=== PATIENT | male | born 1965 | race Caucasian/White ===

== ENCOUNTER → 2024-06-15 07:23 | Outpatient (REF) | payer OTHER, SELFPAY | LOC: RAD 07:23 | PROVIDERS: ATTENDING PHYSICIAN Internal Medicine | DX: Z87.891 Personal history of nicotine dependence (principal); R91.8 Other nonspecific abnormal finding of lung field | CPT/HCPCS: 71271 ==

== ENCOUNTER → 2025-04-25 07:10 | Outpatient (REF) | payer OTHER, SELFPAY ==
[2025-04-25 09:26] LABS: Hematocrit 43.0 % (39.0-52.0); Hemoglobin 14.6 g/dL (13.0-18.0); Mean Corp Hgb Conc. 34.0 g/dL (33.0-37.0); Mean Corpuscular Volume 88.8 fL (80.0-94.0); Nucleated Red Blood Cells % 0 % (-); Platelet Count 183 10^3/uL (130-400); Red Cell Dist. Width 12.3 % (11.5-14.5)
[2025-04-25 10:29] LABS: ALT (SGPT) 66 U/L (0-50); AST (SGOT) 38 U/L (17-59); Albumin 4.7 g/dl (3.5-5.0); Alkaline Phosphatase 33 U/L (38-126); Blood Urea Nitrogen 15 mg/dl (9-20); Calcium 9.5 mg/dl (8.4-10.2); Carbon Dioxide 27 mmol/L (22-30); Chloride 101 mmol/L (98-107); GGTP 73 U/L (15-73); Glucose 133 mg/dl (70-99); HDL Cholesterol 52 mg/dl; Iron 109 ug/dl (49-181); LDL Cholesterol, Calculated 77 mg/dl; Potassium 3.9 mmol/L (3.5-5.1); Sodium 138 mmol/L (135-145); Total Protein 7.3 g/dl (6.3-8.2); Very Low Density Lipoprotein 21 mg/dl (0-30); eGFR > 60.00
[2025-04-25 10:39] LABS: Total Iron Binding Capacity 370 ug/dl (261-462)
[2025-04-25 10:52] LABS: Ferritin 281.0 ng/ml (17.9-464.0)
[2025-04-25 12:57] LABS: Lyme Antibody Screen, EIA Negative (Negative)
[2025-04-25 13:13] LABS: Glycohemoglobin (HgbA1c) 6.8 % (4.0-5.6)
== END ==
LOC: RAD 07:10
PROVIDERS: ATTENDING PHYSICIAN Ophthalmology; FAMILY PHYSICIAN Internal Medicine
DX: H47.011 Ischemic optic neuropathy, right eye (principal); H46.9 Unspecified optic neuritis; E11.9 Type 2 diabetes mellitus without complications; F10.20 Alcohol dependence, uncomplicated; G47.33 Obstructive sleep apnea (adult) (pediatric)
CPT/HCPCS: 36415; 80053; 80061; 82728; 82977; 83036; 83540; 83550; 84100; 85025; 85652; 86618; 93880

== ENCOUNTER → 2025-06-03 18:31 | Outpatient (REF) | payer OTHER, SELFPAY | LOC: MRI 3T 18:31 | PROVIDERS: ATTENDING PHYSICIAN Ophthalmology; FAMILY PHYSICIAN Internal Medicine | DX: H47.011 Ischemic optic neuropathy, right eye (principal) | CPT/HCPCS: 70553; A9575 ==